=== PATIENT | male | born 1960 | race Caucasian/White ===

== ENCOUNTER 2021-09-21 13:34 | Outpatient (CLI) | payer MEDICARE, SELFPAY ==
--- NOTE | ~2021-09-21 | XR_ITS ---
XR lumbar spine 2-3V DATE: 09/21/2021 13:56 INDICATION: 3 month postoperative examination TECHNIQUE: AP and lateral views COMPARISON: None FINDINGS: There are bilateral pedicle screws and rods at L1-L5. There is interbody spinal fusion from L1-2 through L5-S1. Lower lumbar laminectomy. There is slight anterolisthesis at L2-3 and mild retrolisthesis at L4-5. No fracture or dislocation or bone destruction is evident. The sacroiliac joints are intact. IMPRESSION: Status post lower lumbar laminectomy and posterior and interbody spinal fusion from L1 th rough L5 S1 Reviewed, dictated and finalized at location A. IMPRESSION: Status post lower lumbar laminectomy and posterior and interbody sp inal fusion from L1 through L5 S1
== END 2021-09-21 13:35 | disposition home or self-care (01) ==
LOC: ANHIMG 13:40
PROVIDERS: Visit Provider Neurological Surgery
DX: M48.061 Spinal stenosis, lumbar region without neurogenic claudication (principal); Z98.1 Arthrodesis status
CPT/HCPCS: 72100

== ENCOUNTER 2022-03-02 12:37 | Outpatient (CLI) | payer MEDICARE, SELFPAY ==
--- NOTE | ~2022-03-02 | XR_ITS ---
Lumbosacral Spine: AP and lateral views Clinical History: Postoperative COMPARISON: 09/21/2021 Findings: Stable posterior fusion hardware from L1 to L5 with bilateral rods, transverse and screws, and multilevel disc fusion devices. Osseous alignment is unchanged. Stable laminectomy defects. No ac sitka abnormality seen. The sacroiliac joints are normally outlined. Impression: Stable posterior fusion hardware from L1 to L5. No change from prior exam. Reviewed, dictated and finalized at location . L CLERK Impression: Stable posterior fusion hardware from L1 to L5. No change from prior exam.
== END 2022-03-02 12:38 | disposition home or self-care (01) ==
PROVIDERS: Visit Provider Neurological Surgery
DX: M54.50 Low back pain, unspecified (principal); Z98.1 Arthrodesis status
CPT/HCPCS: 72100

== ENCOUNTER 2022-07-16 13:37 | Outpatient (CLI) | payer MEDICARE, SELFPAY ==
--- NOTE | 2022-07-16 13:46 | ECG_ITS ---
Measurements Intervals [place] Rate: 80 P: 56 OR: 149 QRS: -46 QRSD: 104 T: 61 QT: 375 QTc: 434 Interpretive Statements SINUS RHYTHM LEFT ANTERIOR FASCICULAR BLOCK BASELINE ARTIFACT- I, II, III, AVR, AVL, AVF ABNORMAL ECG NO PREVIOUS ECG AVAILABLE FOR COMPARISON Electronically Signed On 07-16-2022 14:22:52 CDT by David Wong D.O.
[2022-07-16 14:08] LABS: Hematocrit 43.1 % (42.0-52.0); Hemoglobin 14.4 g/dL (14.0-18.0)
== END 2022-07-16 13:38 | disposition home or self-care (01) ==
LOC: ANHSURGERY 13:42
PROVIDERS: Anesthesiology; Visit Provider Neurological Surgery
DX: M46.1 Sacroiliitis, not elsewhere classified (principal); I44.4 Left anterior fascicular block
CPT/HCPCS: 36415; 85014; 85018; 86850; 86900; 86901; 93005

== ENCOUNTER 2022-07-20 01:43 | Day surgery (SDC) | payer MEDICARE, SELFPAY ==
[2022-07-12 16:25] VITALS: BMI 26.4
--- NOTE | 2022-07-12 16:57 | PC.NURSE ---
Report to the Outpatient Waiting Room, entrance under the green pavilion located off [facility], at 0630 on 07-20-22. Planned Procedure Time: 0830. Time changes happen often and if your time is changed the preop area will call you the afternoon before. - You and your visitor will be asked to self-screen and do not enter if you have any COVID symptoms. - A mask is optional within the hospital at this time. Patients may have clear liquids (water, carbonated beverages, clear teas, apple juice) until 3 hours prior to surgery with a maximum of 20 ounces. 0530 - No food from midnight until time of surgery - Infants may have breast milk until 4 hours before surgery, formula 6 hours prior to surgery. - Children will be allowed to drink immediately following surgery. If applicable, please bring a bottle or sippy cup to assist with drinking. Juice, water, soda, and popsicles are readily available. For infants on formula, please bring formula the day of surgery. Pacifiers are allowed. Take the following medications with a SIP of water the morning of surgery: hydromorphone if needed DO NOT STOP ANY OF YOUR OTHER PRESCRIPTION MEDICATIONS PRIOR TO SURGERY ?EXCEPT THE FOLLOWING Medications to discontinue per physician: Ibuprofen PM Date to take last dose: Per Dr. Burgess Please no make-up, nail yoruba, hairspray, perfume, deodorant, or body powder the day of surgery. No jewelry (including any body piercings) or valuables the day of surgery, leave them at home. Please take a shower or bath the night before, or the morning of, surgery with an antibacterial soap. Wear comfortable, loose fitting clothing. Children are encouraged to wear pajamas. - Jewelry must be removed prior to entering the operating room. Rings and piercings that are not removed may be cut off. - The hospital will not accept responsibility for valuables. - Please leave all valuables, including medications, at home the day of surgery. If you are going home after surgery, a licensed backhaul driver must drive you home. - NO public transportation without another adult if you receive anesthesia. - We recommend that an adult stay with you for 24 hours following discharge. - We also recommend that you do not drive, make important decision, drink alcoholic beverages, or take any drugs that were not prescribed by your health care provider for at least 24 hours after your discharge time. For Pediatric surgeries, we recommend two adults accompany the child home. Follow any additional instructions given to you from your surgeon. If you or anyone in your household have experienced Covid symptoms in the past week, please notify your surgeon or the nurse liaison at the phone number below for possible testing. Telephone instructions given to Vidal Bazan and asked if any additional questions and then verbalized understanding. Patient advised to call surgeon office or pre surgery nurse liaison [phone] if any additional questions.
--- NOTE | 2022-07-19 14:31 | WPDANESEPPF ---
Anes - Initial Pre Proc Eval Procedure: Operation Date: 07/20/22 08:30 Proposed Procedures p Right Open Lateral Sacroiliac Joint Fusion - Brian Burgess MD Date/Time: 07/19/22 14:31 Surgeon: Brian Burgess MD Pre Op Diagnosis: right sacroiileitis Patient Data Age: 62 Gender: M Height: 1.73 m Weight: 78.93 kg Allergies Allergy/AdvReac Type Severity Reaction Status Date / Time No Known Allergies Allergy Verified 07/12/22 16:18 Home Medications Medication Instructions Recorded Confirmed Type alprazolam 0.5 mg tablet 0.5 mg PO DAILY 09/21/21 07/12/22 History testosterone 12.5 mg/1.25 gram per 1 pump transdermal DAILY 09/21/21 07/12/22 History pump actuation (1%) transdermal gel diphenhydramine 25 2 tablet PO HS PRN Pain 07/12/22 07/12/22 History mg-acetaminophen 500 mg tablet (Tylenol PM Extra Strength) hydromorphone 16 mg 16 mg PO DAILY 07/12/22 07/12/22 History tablet,extended release 24 hr ibuprofen 200 mg-diphenhydramine 1 cap PO HS PRN pain 07/12/22 07/12/22 History HCl 25 mg capsule (Ibuprofen PM) ECG: Date of Service: 07/16/22 Procedure(s): CA 12 lead EKG Accession Number(s): [id number] cc: ~ ? Measurements Intervals? [place]? Rate: ? 80 ? P:? 56 UT: ? 149? QRS:? -46 QRSD: ? 104? T:? 61 QT: ? 375? QTc:? 434? Interpretive Statements SINUS RHYTHM LEFT ANTERIOR FASCICULAR BLOCK BASELINE ARTIFACT- I, II, III, AVR, AVL, AVF ABNORMAL ECG NO PREVIOUS ECG AVAILABLE FOR COMPARISON Electronically Signed On 07-16-2022 14:22:52 CDT by David Wong D.O. Patient hx anesthesia problems: none Family hx anesthesia problems: none Results Review: All pre-operative results and documents have been reviewed as part of the pre-operative evaluation. [facility]LY [facility] Past Medical History Medical History (Updated 07/19/22 @ 14:32 by Alex Gee MD) Chronic narcotic use Fusion of lumbar spine Surgical History Surgical History (Updated 03/02/22 @ 13:49 by Brian Burgess MD) H/O eye surgery H/O vasectomy Knee joint replacement status Status post lumbar spine surgery for decompression of spinal cord Family History Family History Other Breast cancer Social History Social History Smoking packs per day: 1 Smoking cigarettes per day: 20.0 Years smoked: 7 Smoking pack-years: 7.00 Smoking status: Former smoker Tobacco type: cigarettes Second hand tobacco smoke exposure: No Smoking end date: 03/14/85 Alcohol intake: current Alcohol use details: very rarely Substance use: never Substance use type: does not use Living arrangements: with family Spiritual care concerns: No Anes - Eval Final PreProcedure Day of Procedure 07/19/22 14:31 Patient weight: overweight Heart: regular rate and rhythm Lungs: clear to auscultation and normal air movement Airway: Mallampati scale class II Neurological: alert and oriented Last oral intake: >/= 8 hours ASA classification: III Emergent: no Anesthetic plan: proceed Anesthesia type and monitoring: general ETT Results Review: All pre-operative results and documents have been reviewed as part of the pre-operative evaluation. Informed Consent: The patient's anesthetic plan and its attendant risks and benefits were discussed with the patient/family/POA. Questions were solicited and answers provided to the satisfaction of the patient/family/POA.
[2022-07-20] VITALS (10 sets, daily range): BP systolic 103–125; BP diastolic 55–83; PULSE 50–72; RESP 10–18; TEMP 36.2–37; O2SAT 97–100
--- NOTE | ~2022-07-20 | XR_ITS ---
EXAMINATION: XR fluoroscopy no charge DATE: 07/20/2022 10:15 INDICATION: Sacroiliac joint effusion TECHNIQUE: 3 fluoroscopic images of the sacrum were obtained during procedure performed by Dr. Kimberly felix. Radiologist was not present for the imaging or procedure. The amount of fluoroscopy time used dur ing this procedure was 2.5 minutes. COMPARISON: Lumbar spine radiograph dated 03/02/2022 FINDINGS: Again seen are changes of a prior L4 and L5 laminectomy with instrumented posterior spinal fusion ext ending cephalad from L5 with pedicle screws at L3, L4 and L5 and anterior spinal fusion with bone gra ft cages at L4-L5 and L5-S1. Placement of 3 cannulated compression screws spanning the right sacroili ac joint. Sacral arches appear intact. No fractures identified. IMPRESSION: 1. Fluoroscopy utilized during right sacroiliac arthrodesis with screw fixation. See procedure note f or further detail. Reviewed, dictated and finalized at location A. IMPRESSION: 1. Fluoroscopy utilized during right sacroiliac arthrodesis with screw fixation . See procedure note for further detail.
--- NOTE | 2022-07-20 07:39 | PM.IMHP ---
H&P: HPI History of Present Illness Date/Time: 07/20/22 07:39 Chief Complaint: Right back and buttock pain Narrative: Vidal is a 62-year-old gentleman back and right buttock pain related with sacroiliitis who presents for sacroiliac joint fusion. He has not changed appreciably since we last saw him. He is not having bowel or bladder difficulty. He is not having specific muscle group weakness or dermatomal numbness. Review of Systems Review of Systems: Patient denies, cough, fever, chills, nausea, vomiting, weight loss, weight gain, chest pain, dysuria. He has back pain as above. His review of systems otherwise negative PMF Past Medical History Medical History (Updated 07/19/22 @ 14:32 by Alex Gee MD) Chronic narcotic use Fusion of lumbar spine Surgical History Surgical History (Updated 03/02/22 @ 13:49 by Brian Burgess MD) H/O eye surgery H/O vasectomy Knee joint replacement status Status post lumbar spine surgery for decompression of spinal cord Family History Family History Other Breast cancer Social History Social History Smoking packs per day: 1 Smoking cigarettes per day: 20.0 Years smoked: 7 Smoking pack-years: 7.00 Smoking status: Former smoker Tobacco type: cigarettes Second hand tobacco smoke exposure: No Smoking end date: 03/14/85 Alcohol intake: current Alcohol use details: very rarely Substance use: never Substance use type: does not use Living arrangements: with family Spiritual care concerns: No Meds Home Medications and Allergies Home Medications Medication Instructions Recorded Confirmed Type alprazolam 0.5 mg tablet 0.5 mg PO DAILY 09/21/21 07/12/22 History testosterone 12.5 mg/1.25 gram per 1 pump transdermal DAILY 09/21/21 07/12/22 History pump actuation (1%) transdermal gel diphenhydramine 25 2 tablet PO HS PRN Pain 07/12/22 07/12/22 History mg-acetaminophen 500 mg tablet (Tylenol PM Extra Strength) hydromorphone 16 mg 16 mg PO DAILY 07/12/22 07/12/22 History tablet,extended release 24 hr ibuprofen 200 mg-diphenhydramine 1 cap PO HS PRN pain 07/12/22 07/12/22 History HCl 25 mg capsule (Ibuprofen PM) Allergies Allergy/AdvReac Type Severity Reaction Status Date / Time No Known Allergies Allergy Verified 07/12/22 16:18 Exam Narrative: Strength is 5/5 in all muscle groups of the bilateral lower extremities. Sensation is intact light touch throughout the lower extremities. Regular rate and rhythm Breathing is nonlabored Assessment and Plan Assessment and plan (1) Sacroiliitis: Code(s): M46.1 - Sacroiliitis, not elsewhere classified Status: Acute Assessment and Plan: Vidal presents for a right sacroiliac joint fusion and I again described to him that operation, its risks, potential benefits, the operative and postoperative course in detail and answered all his questions personally. He indicates an understanding and elects to proceed with that operation.
--- NOTE | 2022-07-20 07:41 | WPDHPUPDATE1 ---
History and Physical Update Update Date/Time: 07/20/22 07:41 History and Physical has been reviewed, including an updated exam of the patient. There are NO changes in the patient's condition. Risks, benefits, and alternatives have been discussed and questions answered. Patient agrees to proceed with procedure.
[2022-07-20] MEDS: LACTATED RINGERS 1,000 ML 30 ML IV CONT ×2 (08:00→10:10)
[2022-07-20] MEDS: ceFAZolin 2 GM/D5W 50 ML 2 GM/50 ML BAG IVPB (08:22)
[2022-07-20] MEDS: LIDO 1%/EPINEPHRINE 1:100,000 50 ML VIAL 10 ML INFILTRATE (08:50)
--- NOTE | 2022-07-20 10:11 | P.OP_ITS ---
Procedure Note - Detailed Date of Procedure 07/20/22 Pre-op Diagnosis right sacroiileitis Post-op Diagnosis Same Procedure Performed Right sacroiliac joint fusion, open, lateral Surgeon Brian Burgess MD [employer] Anesthesia General Description of Procedure The patient was brought to the operating room the supine position, was sedated, intubated and placed under general anesthesia in routine fashion. He was then turned in the prone position on gel rolls. The area of operation on the right buttock was examined, marked for incision, prepped and draped in routine sterile fashion. Incision was marked by outlining the sacrum using fluoroscopy and marking incision down the length of the sacrum. This area was injected with 0.5% lidocaine with [id number] epinephrine. Intravenous antibiotics given prior to incision. Incision was made with a 10 blade scalpel. Sharp K-wire was placed through the incision to the pelvis. Using lateral, outlet and inlet views the entry point and trajectory was monitored as the K-wire was advanced across the sacroiliac joint to be short of the foraminal line and within the anterior margin of the sacrum. Measurement was taken in a 40 mm x 11.5 mm device was chosen filled eventually with local autograft bone and I factor. Extensions were placed on the K-wire and sequentially of drill, tap were used followed by placement of the device under fluoroscopy using the outlet view until it was confirmed to be in good position. Using a guide a 2nd and then 3rd K-wire were placed. In like fashion the dilator tubes were placed over the wire, a measurement was taken, the device was chosen, and the drill and tap were used followed by placement of the device. Another 11 0.5 x 45 mm device was placed at the 2nd position distally and an 40 x 9.5 mm device in the 3rd position distally. Verifying x-rays were taken in the inlet, outlet and lateral views to confirm good position of the instrumentation which was confirmed. The wound was then copiously irrigated with bacitracin irrigation all bleeding stopped with bipolar cautery. The wound was then closed in layered fashion with 2-0 Vicryl interrupted sutures in the dermis and a running 4-0 Monocryl subcuticular skin stitch in the skin were dressed with Dermabond. The patient was loud wake up in the operating room was taken to the recovery room in stable condition. There were no immediate complications of this operation. All counts were reported correct at the end of the case. Blood loss was 10 cc. Implants CoreLink hollow threaded dowels for SI joint fusion Estimated Blood Loss 10 IV Fluids 1,000 Complications None Condition Stable Disposition PACU [facility] Billing Surgery - Charge Forward: Surgery Billing
[2022-07-20] MEDS: fentaNYL CITRATE INJ (*CRX) 100 MCG/2 ML VIAL 25 MCG IV PUSH ×6 (10:35→11:00)
--- NOTE | 2022-07-20 12:15 | ADMGEN ---
This patient, Vidal Bazan, was admitted to Medical Room [facility] . Patient/family oriented to hospital policies and general routines including ID bracelet, bed and alarms, visiting hours, pain management, procedures, bathroom and other care routines, personal items, smoking policy, room service/diet, and visiting hours. Information on how to activate the Rapid Response Team has been discussed. Patient/Family are encouraged to report perceived risks to care and to ask questions if they do not understand what they are told or what they should do.
[2022-07-20] MEDS: HYDROcodone/acetaminophen (*CRX) 10-325 MG TABLET 1 TAB PO ×3 (13:10→22:50)
[2022-07-20] MEDS: DOCUSATE SODIUM 100 MG CAPSULE PO (20:16)
[2022-07-20] MEDS: MORPHINE SULFATE (*CRX) 2 MG/ML INJ IV PUSH (20:16)
[2022-07-20] MEDS: ALPRAZolam (*CRX) 0.5 MG TABLET PO (20:16)
[2022-07-20] MEDS: CYCLOBENZAPRINE HCL 10 MG TABLET PO (22:50)
[2022-07-21] MEDS: HYDROcodone/acetaminophen (*CRX) 10-325 MG TABLET 1 TAB PO ×3 (05:45→13:50)
--- NOTE | 2022-07-21 06:58 | PC.NURSE ---
Paper documentation exists on this patient due to [employer] downtime on 07/20/22 from to [2200 to 0600] .
[2022-07-21] MEDS: DOCUSATE SODIUM 100 MG CAPSULE PO (09:06)
--- NOTE | 2022-07-21 10:28 | WPDANESPN ---
Anes - Prog Note Post-Op Date/Time: 07/21/22 10:28 Cardiovascular status: normal Respiratory status: normal Airway patency: baseline Mental status: baseline Post-Op hydration status: normal Vital Signs: Last Vital Signs Temp 36.8 C 07/20/22 19:50 Pulse 72 07/20/22 19:50 Resp 18 07/20/22 19:50 BP 109/64 07/20/22 19:50 Pulse Ox 97 07/20/22 19:50 O2 Del Method Room Air 07/20/22 13:41 O2 Flow Rate 6 07/20/22 10:40 Pain Score (VAS): 0. up walking the halls. states he feels good and is ready to go home. I/O: Intake & Output 07/20/22 07/21/22 07/21/22 23:59 07:59 15:59 Intake Total 360 300 360 Balance 360 300 360 Post-procedural complaints: none Patient Feedback: Patient satisfied with anesthetic care.
== END 2022-07-21 16:00 | disposition home or self-care (01) ==
LOC: ANHSURGERY 06:42 → ANH3MED 11:42
PROVIDERS: Visit Provider Neurological Surgery
PROC: (CPT 27280; principal; 2022-07-20 08:30)
DX: M46.1 Sacroiliitis, not elsewhere classified (principal); Z79.891 Long term (current) use of opiate analgesic; Z98.1 Arthrodesis status; Z87.891 Personal history of nicotine dependence
CPT/HCPCS: 27280; 97161; 99199; A9270; C1713; J0690; J1100; J2250; J2270; J2405; J2704; J3010; J3370; J7120